=== PATIENT | female | born 1995 | race American Indian/Alaskan Native ===

== ENCOUNTER 2017-01-29 08:40 | Emergency (ER) | payer SELFPAY ==
[2017-01-29 09:02] VITALS: BP 137/69
[2017-01-29] MEDS ORDERED: FIORICET PO ONE (11:20)
[2017-01-29] MEDS ORDERED: XYLOCAINE TOPICAL 4% TP ONE (11:20)
--- NOTE | 2017-01-29 11:22 | Emergency Department Report ---
ED General Adult HPI - General Chief complaint: Headache Stated complaint: COUGH,HEADACHE,HEART RATE SPEEDING UP Time Seen by Provider: 01/29/17 11:01 Source: patient Mode of arrival: Ambulatory Limitations: No Limitations - History of Present Illness Initial comments: Agency 21-year-old female past medical history of hyperthyroidism who presents with headache and cough. She states that her headache is a 7 out of 10 located in the back of her head doesn't radiate into an achy type of pain nothing makes it better or worse. Patient also states that she's been coughing a lot for the last couple days. She says the cough is worse on exertion and better with rest. She also states that sometimes she feels her heart racing at times. She' s been taken off her thyroid medication and she has no follow-up with her primary care doctor. Patient denies any nausea or vomiting. Patient has had no chest pain or syncopal episodes. - Related Data Previous Rx's Medication Instructions Recorded Last Taken Type Butalb/Acetamin/Caff 50-325-40 1 tab PO Q6HR PRN #15 tab 01/29/17 Unknown Rx [Fioricet] Allergies Allergy/AdvReac Type Severity Reaction Status Date / Time Penicillins Allergy Rash Verified 01/29/17 11:38 ED Review of Systems ROS: Stated complaint: COUGH,HEADACHE,HEART RATE SPEEDING UP Other details as noted in HPI Constitutional: denies: chills, fever Eyes: denies: eye pain, eye discharge, vision change ENT: denies: ear pain, throat pain Respiratory: cough. denies: shortness of breath, wheezing Cardiovascular: palpitations. denies: chest pain Endocrine: no symptoms reported Gastrointestinal: denies: abdominal pain, nausea, diarrhea Genitourinary: denies: urgency, dysuria, discharge Musculoskeletal: denies: back pain, joint swelling, arthralgia Skin: denies: rash, lesions Neurological: headache. denies: weakness, paresthesias Psychiatric: denies: anxiety, depression Hematological/Lymphatic: denies: easy bleeding, easy bruising ED Past Medical Hx - Past Medical History Additional medical history: hypothyroid - Surgical History Past Surgical History?: No - Social History Smoking Status: Never Smoker Substance Use Type: None, Marijuana - Medications Home Medications: Home Medications Medication Instructions Recorded Confirmed Last Taken Type Butalb/Acetamin/Caff 50-325-40 1 tab PO Q6HR PRN #15 tab 01/29/17 Unknown Rx [Fioricet] ED Physical Exam - General Limitations: No Limitations General appearance: alert, in no apparent distress - Head Head exam: Present: atraumatic, normocephalic - Eye Eye exam: Present: normal appearance - ENT ENT exam: Present: mucous membranes moist - Neck Neck exam: Present: normal inspection - Respiratory Respiratory exam: Present: normal lung sounds bilaterally. Absent: respiratory distress - Cardiovascular Cardiovascular Exam: Present: regular rate, normal rhythm. Absent: systolic murmur, diastolic murmur, rubs, gallop - GI/Abdominal GI/Abdominal exam: Present: soft, normal bowel sounds - Extremities Exam Extremities exam: Present: normal inspection - Back Exam Back exam: Present: normal inspection - Neurological Exam Neurological exam: Present: alert, oriented X3 - Psychiatric Psychiatric exam: Present: normal affect, normal mood - Skin Skin exam: Present: warm, dry, intact, normal color. Absent: rash ED Course Vital Signs 01/29/17 01/29/17 08:56 11:01 Temperature 98 F Pulse Rate 119 H 92 H Blood Pressure 137/69 O2 Sat by Pulse 98 Oximetry ED Medical Decision Making - Lab Data Result diagrams: 01/29/17 11:29 Lab Results 01/29/17 01/29/17 01/29/17 Range/Units 11:29 11:29 11:29 Sodium 138 (137-145) mmol/L Potassium 4.2 (3.6-5.0) mmol/L Chloride 100.9 (98-107) mmol/L Carbon Dioxide 24 (22-30) mmol/L Anion Gap 17 mmol/L BUN 10 (7-17) mg/dL Creatinine 0.5 L (0.7-1.2) mg/dL Estimated GFR > 60 ml/min BUN/Creatinine Ratio 20.00 % Glucose 97 (65-100) mg/dL Calcium 9.1 (8.4-10.2) mg/dL TSH < 0.005 L (0.270-4.200) mlU/mL Thyroxine (T4) 8.7 (4.0-12.0) ug/dL - Medical Decision Making Medical diagnosis: Tension headache Differential diagnosis: Viral syndrome, hyperthyroidism TSH, CMP, T3 and T4 I will also give him nebulized lidocaine and oral Fioricet Patient's cough is better after nebulized lidocaine I will also give the patient appears to go home for headache. And I will give patient a primary care doctor referral so she can be place on her hyperthyroid medicine. Discussed plan with patient and she agrees with plan. Critical care attestation.: If time is entered above; I have spent that time in minutes in the direct care of this critically ill patient, excluding procedure time. ED Disposition Clinical Impression: Hyperthyroidism, Tension headache, Cough Disposition: - TO HOME OR SELFCARE Is pt being admited?: No Does the pt Need Aspirin: No Condition: Stable Instructions: Hyperthyroidism (ED), Tension Headache (ED) Prescriptions: Butalb/Acetamin/Caff 50-325-40 [Fioricet] 1 tab PO Q6HR PRN #15 tab PRN Reason: Headache Referrals: ARELY GIBSON MD [Staff Physician] - 3-5 Days
[2017-01-29 11:53] LABS: Anion Gap 17 mmol/L; Blood Urea Nitrogen 10 mg/dL (7-17); Calcium 9.1 mg/dL (8.4-10.2); Carbon Dioxide 24 mmol/L (22-30); Chloride 100.9 mmol/L (98-107); Glucose 97 mg/dL (65-100); Potassium 4.2 mmol/L (3.6-5.0); Sodium 138 mmol/L (137-145)
== END 2017-01-29 14:15 | disposition home or self-care (01) ==
LOC: ED 08:40
DX: E05.90 Thyrotoxicosis, unspecified without thyrotoxic crisis or storm (principal); G44.209 Tension-type headache, unspecified, not intractable; F12.10 Cannabis abuse, uncomplicated; R05 Cough; Z88.0 Allergy status to penicillin
CPT/HCPCS: 36415; 80048; 84436; 84443; 84481; 99282

== ENCOUNTER 2017-09-19 09:09 | Emergency (ER) | payer SELFPAY ==
[2017-09-19 09:15] VITALS: BP 119/74
--- NOTE | 2017-09-19 11:01 | Emergency Department Report ---
Chief Complaint: Medical Clearance Stated Complaint: NAUSEA/VOMITING Time Seen by Provider: 09/19/17 10:47 - HPI History of Present Illness: She is a 21-year-old female with no prior medical history of present ED stating that for the past week she's been feeling nauseated. Patient states she missed her cycle this month and had a last menstrual period of 08/15/2017. Patient states that she got status from [facility] and took a test and was unsure about the results so she wanted to come here and be tested. She denies nausea vomiting at the moment, abdominal pain, vaginal bleeding, vaginal discharge, dysuria, pelvic pain or any other problems. - ROS Review of Systems: As noted in HPI Denies all others - Exam Vital Signs: Vital Signs 09/19/17 09:11 Temperature 98.9 F Pulse Rate 78 Respiratory 20 Rate Blood Pressure 119/74 O2 Sat by Pulse 100 Oximetry Physical Exam: GENERAL: Alert and oriented x3, no apparent distress, Normal Gait, atraumatic. HEAD: Head is normocephalic and a-traumatic. LUNGS: Symetrical with respiration, CTAB. HEART: S1, S2 present, regular rate and rhythm without murmur, SKIN: No lesions, No ulceration or induration present. MSE screening note: Focused history and physical exam performed. Due to findings the following was ordered: ED Medical Decision Making - Medical Decision Making 21-year-old female presents for test ED course: I discussed the patient that she can follow up [facility] medical care. Urine test positive I discussed findings with the patient. Discussed the patient I'll be giving her some vitamins and medication for nausea. I discuss increase hydration. Constipation this is very early 2-4 weeks based on last menstrual period I discussed patient to follow-up with OBGYN as referred. Vital signs are normal patient was in no acute or respiratory distress had no events in the ED. ED Disposition for MSE Clinical Impression: test positive Disposition: DC-01 TO HOME OR SELFCARE Is pt being admited?: No Does the pt Need Aspirin: No Condition: Stable Instructions: (ED), Morning Sickness (ED) Additional Instructions: Make sure to follow up with the [facility] as discussed. Take all your medications as you've been prescribed. If you have any worsening symptoms or develop new symptoms please return to ED immediately. Prescriptions: Doxylamine Succinate/Vit B6 [Gina Isbell 10-10 mg Tablet] 2 each PO QHS #30 tablet.dr Cee No.95/Ferrous Fum/Folic AC [ Formula Tablet] 1 each PO DAILY #40 tablet Referrals: PRIMARY CAREMD [Primary Care Provider] - 3-5 Days JILLIAN JAMIL MD [Referring] - 3-5 Days [facility] [Outside] - 3-5 Days [facility] [Outside] - 3-5 Days [facility] [Provider Group] - 3-5 Days Forms: Work/School Release Form(ED) Time of Disposition: 11:56
[2017-09-19 11:46] LABS: HCG Qualitative,Urine Positive (Negative)
== END 2017-09-19 12:20 | disposition home or self-care (01) ==
LOC: ED 09:09
DX: O21.9 Vomiting of pregnancy, unspecified (principal); Z3A.01 Less than 8 weeks gestation of pregnancy; Z88.0 Allergy status to penicillin
CPT/HCPCS: 81025; 99283